=== PATIENT | female | born 1945 | race Hispanic/Latino ===

== ENCOUNTER 2016-12-08 13:03 | Emergency (ER) | payer MEDICARE, OTHER ==
[2016-12-08 13:03] VITALS: BMI 30.1
[2016-12-08 13:22] VITALS: RESP 18; TEMP 99; O2SAT 96
--- NOTE | 2016-12-08 13:39 | ED PDOC ---
Arrival/HPI - General Chief Complaint: Finger,Hand,&Wrist Time Seen by Provider: 12/08/16 13:26 Historian: Patient - History of Present Illness Narrative History of Present Illness (Text): 12/08/16 13:36 A 71 year old female, whose past medical history includes arthritis, presents to the emergency department complaining of bilateral hand and left knee pain for the past few days. Patient states her pain feels similar to her arthritis pain. Patient was unable to see her PMD today so she came to the emergency room for evaluation. Patient took Aleve once, with mild relief. Patient denies any trauma. Denies weakness, numbness, tingling, fever, chills, nausea, vomiting, abdominal pain, chest pain, shortness of breath, headache, dizziness. Time/Duration: Other (few days) Symptom Course: Unchanged Quality: Other Context: Other Past Medical History - Provider Review Nursing Documentation Reviewed: Yes - Infectious Disease Hx of Infectious Diseases: None - Tetanus Immunization Tetanus Immunization: Unknown - Cardiac Hx Heart Murmur: Yes Hx Hypertension: Yes Hx Pacemaker: No - Neurological Hx Paralysis: No - HEENT Hx HEENT Disorder: (glasses) - Hematological/Oncological Hx Cancer: Yes (right breast) Hx Chemotherapy: No - Musculoskeletal/Rheumatological Hx Falls: No - Gastrointestinal Hx Gastrointestinal Disorders: (gastritis) Hx Gastrointestinal Ulcer: Yes - Psychiatric Hx Emotional Abuse: No Hx Physical Abuse: No Hx Substance Use: No - Surgical History Other/Comment: right breast lumpectomy, 2nd sx for right breast partial mastectomy and lymph node excision - Anesthesia Hx Anesthesia Reactions: No Hx Malignant Hyperthermia: No - Suicidal Assessment Feels Threatened In Home Enviroment: No Family/Social History - Physician Review Nursing Documentation Reviewed: Yes Family/Social History: No Known Family HX Smoking Status: Never Smoked Hx Alcohol Use: No Hx Substance Use: No Hx Substance Use Treatment: No Allergies/Home Meds Allergies/Adverse Reactions: Allergies codeine Allergy (Verified 12/08/16 13:22) RASH iodine Allergy (Verified 12/08/16 13:22) RASH iron Allergy (Verified 12/08/16 13:22) RASH Penicillins Allergy (Verified 12/08/16 13:22) RASH Home Medications: Home Meds Medication Instructions Recorded Confirmed Cholecalciferol (Vitamin D3) 2,000 iu PO DAILY 08/13/14 09/18/17 [Vitamin D3] Iron 65 mg PO BID 11/02/13 12/08/16 Multivitamin 1 tab PO DAILY 11/02/13 12/08/16 Diclofenac Sodium [Voltaren] 100 gm TP TID 12/08/16 12/08/16 Losartan [Cozaar] 100 mg PO DAILY 12/08/16 12/08/16 Review of Systems - Physician Review All systems were reviewed & negative as marked: Yes - Review of Systems Constitutional: absent: Fevers, Night Sweats Respiratory: absent: SOB Cardiovascular: absent: Chest Pain Gastrointestinal: absent: Abdominal Pain, Nausea, Vomiting Musculoskeletal: Other (Bilateral hand and left knee pain) Neurological: absent: Headache, Dizziness, Focal Weakness (/numbness/tingling) Physical Exam Vital Signs Reviewed: Yes Vital Signs Temp Pulse Resp BP Pulse Ox 12/08/16 15:30 78 18 138/66 12/08/16 13:15 99 F 100 H 18 103/60 96 Temperature: Afebrile Blood Pressure: Normal Pulse: Tachycardic Respiratory Rate: Normal Appearance: Positive for: Well-Appearing, Non-Toxic, Comfortable Pain Distress: None Mental Status: Positive for: Alert and Oriented X 3 - Systems Exam Head: Present: Atraumatic, Normocephalic Pupils: Present: PERRL Conjunctiva: Present: Normal Respiratory/Chest: Present: Clear to Auscultation, Good Air Exchange. No: Respiratory Distress, Accessory Muscle Use Cardiovascular: Present: Regular Rate and Rhythm, Normal S1, S2. No: Murmurs Upper Extremity: Present: Normal Inspection, Normal ROM, NORMAL PULSES (DP intact), Neurovascularly Intact. No: Cyanosis, Edema, Tenderness, Swelling, Erythema, Temperature Abnormalties, Deformity Lower Extremity: Present: Normal Inspection, NORMAL PULSES (DP intact), Normal ROM, Neurovascularly Intact. No: Edema, CALF TENDERNESS, Tenderness, Swelling, Erythema, Deformity, Temperature Abnormalties Neurological: Present: GCS=15, CN II-XII Intact, Speech Normal Skin: Present: Warm, Dry, Normal Color. No: Rashes Psychiatric: Present: Alert, Oriented x 3, Normal Insight, Normal Concentration Medical Decision Making ED Course and Treatment: 12/08/16 13:36 Impression: A 71 year old female with bilateral hand and left knee pain, which feels similar to her arthritis pain. Patient reports prior imaging of b/l hands. Neurovascularly intact. Differential Diagnosis included but are not limited to: Arthritis Plan: -- Left knee xray -- Toradol -- Reassess and disposition Progress Notes: 12/08/16 15:15 Knee shows DJD but no fracture. Patient feels better after toradol - RAD Interpretation Radiology Orders: 12/08/16 13:34 KNEE LEFT 2 VIEWS (AP & LAT) [RAD] Stat - Medication Orders Current Medication Orders: Discontinued Medications Ketorolac Tromethamine (Toradol) 30 mg IM STAT STA Stop: 12/08/16 13:35 Last Admin: 12/08/16 13:44 Dose: 30 mg Re-Assess: LEIDA Pain Assessment Document 12/08/16 14:44 ND (Rec: 12/08/16 15:37 [id number] Pain Reassessment Is this a pain reassessment? Yes Sleep Is patient sleeping during reassessment? No Presence of Pain Presence of Pain Yes Pain Scale Used Pain Scale Used Numeric Location Left, Right or Bilateral Bilateral Pain Location Body Site Hand Description Intensity of Pain at present 5 Acceptable Level of Pain 2 Alleviating Factors Medication - Scribe Statement The provider has reviewed the documentation as recorded by the Alfaibandria Castillo Provider Scribe Attestation: All medical record entries made by the Scribe were at my direction and personally dictated by me. I have reviewed the chart and agree that the record accurately reflects my personal performance of the history, physical exam, medical decision making, and the department course for this patient. I have also personally directed, reviewed, and agree with the discharge instructions and disposition. Disposition/Present on Arrival - Present on Arrival Any Indicators Present on Arrival: No History of DVT/PE: No History of Uncontrolled Diabetes: No Urinary Catheter: No History of Decub. Ulcer: No History Surgical Site Infection Following: None - Disposition Have Diagnosis and Disposition been Completed?: Yes Diagnosis: Arthritis Disposition: HOME/ ROUTINE Disposition Time: 15:15 Patient Plan: Discharge Condition: GOOD Additional Instructions: Follow up with PMD within 2 days. Return if condition worsens. Naproxen for pain. Prescriptions: Naproxen 500 mg PO BID #20 tab Referrals: PCP,NO [Primary Care Provider] - Follow up with primary Forms: [employer] ([place]ian)
[2016-12-08 15:38] VITALS: BP 138/66; PULSE 78
--- NOTE | 2016-12-08 15:44 | RAD ---
PROCEDURE: Left Knee Radiographs. HISTORY: Pain. COMPARISON: None. FINDINGS: BONES: There is no acute displaced fracture or bone destruction. Bone alignment and mineralization are normal. JOINTS: There is mild degenerative osteoarthrosis in the medial compartment. JOINT EFFUSION: There is a small suprapatellar joint effusion. OTHER FINDINGS: None. IMPRESSION: No acute fracture or dislocation.
== END 2016-12-08 15:30 | disposition home or self-care (01) ==
LOC: ED 13:03
DX: M19.90 Unspecified osteoarthritis, unspecified site (principal)
CPT/HCPCS: 73560; 96372; 99283; J1885